=== PATIENT | female | born 1965 | race American Indian/Alaskan Native ===

== ENCOUNTER 2017-07-16 12:17 | Emergency (ER) | payer MEDICARE | END 2017-07-16 12:19 | disposition left against medical advice (07) | LOC: ED 12:17 | DX: R51 Headache (principal); Z53.21 Procedure and treatment not carried out due to patient leaving prior to being seen by health care provider ==

== ENCOUNTER 2021-03-16 10:27 | Emergency (ER) | payer MEDICARE ==
[2021-03-16 10:47] VITALS: BP 142/82
[2021-03-16] MEDS ORDERED: KETOROLAC 60 MG/2 ML INJ IM ONE (11:03)
--- NOTE | 2021-03-16 11:04 | Emergency Department Report ---
ED General Adult HPI - General Chief complaint: Extremity Injury, Lower Stated complaint: HIP PAIN Time Seen by Provider: 03/16/21 10:56 Source: patient Mode of arrival: Ambulatory Limitations: No Limitations - History of Present Illness Initial comments: 56-year-old -[place] female patient presents with complaints of left lower back pain radiating down her left buttock and thigh x4 days. She reports a history of sciatica and states this feels like a previous sciatic letter. Patient states her pain began when she attempted to climb the ladder to step out of the swimming pool 4 days ago. She denies any loss of bladder/bowel control, numbness/tingling/weakness in her limbs, or difficulty with ambulation. Patient's past medical history includes diabetes, morbid obesity, hypertension, and arthritis. She rates her current pain is 8/10 in severity. Patient states that ibuprofen 800 mg does help some. - Related Data Previous Rx's Medication Instructions Recorded Last Taken Type HYDROcodone/APAP 10-325 [[place] 1 each PO Q6HR PRN #20 tablet 06/17/15 Unknown Rx 10/325] methOCARBAMOL [Robaxin TAB] 750 mg PO Q8H PRN #21 tablet 06/17/15 Unknown Rx Albuterol Sulfate [Ventolin HFA] 2 puff IH Q4H PRN #1 hfa.aer.ad 10/16/15 Unknown Rx Amoxicillin/K Clav Tab [Augmentin 1 tab PO Q12HR #20 tab 10/16/15 Unknown Rx 875 mg] predniSONE [Deltasone] 50 mg PO QDAY #5 tab 10/16/15 Unknown Rx Cyclobenzaprine HCl [Flexeril 5 MG 5 mg PO TID #15 tab 06/24/16 Unknown Rx TAB] Ibuprofen [Motrin 800 MG tab] 800 mg PO Q8HR PRN #30 tablet 11/12/16 Unknown Rx Naproxen 500 mg PO BID PRN #20 tablet 03/16/21 Unknown Rx methocarbamoL [Methocarbamol] 750 - 1,500 mg PO TID PRN #30 03/16/21 Unknown Rx tablet Allergies Allergy/AdvReac Type Severity Reaction Status Date / Time No Known Allergies Allergy Verified 03/16/21 10:42 ED Review of Systems ROS: Stated complaint: HIP PAIN Other details as noted in HPI Constitutional: denies: malaise Gastrointestinal: denies: abdominal pain Genitourinary: denies: frequency, hematuria Musculoskeletal: back pain. denies: joint swelling, arthralgia Skin: denies: change in color Neurological: denies: numbness, paresthesias ED Past Medical Hx - Past Medical History Hx Hypertension: Yes Hx Diabetes: Yes Hx Arthritis: Yes Additional medical history: CAD. Morbid obesity - Surgical History Hx Cholecystectomy: Yes Additional Surgical History: HERNIA REPAIR,CS X 2 - Social History Smoking Status: Never Smoker Substance Use Type: None - Medications Home Medications: Home Medications Medication Instructions Recorded Confirmed Last Taken Type HYDROcodone/APAP 10-325 [[place] 1 each PO Q6HR PRN #20 tablet 06/17/15 Unknown Rx 10/325] methOCARBAMOL [Robaxin TAB] 750 mg PO Q8H PRN #21 tablet 06/17/15 Unknown Rx Albuterol Sulfate [Ventolin HFA] 2 puff IH Q4H PRN #1 hfa.aer.ad 10/16/15 Unknown Rx Amoxicillin/K Clav Tab [Augmentin 1 tab PO Q12HR #20 tab 10/16/15 Unknown Rx 875 mg] predniSONE [Deltasone] 50 mg PO QDAY #5 tab 10/16/15 Unknown Rx Cyclobenzaprine HCl [Flexeril 5 MG 5 mg PO TID #15 tab 06/24/16 Unknown Rx TAB] Ibuprofen [Motrin 800 MG tab] 800 mg PO Q8HR PRN #30 tablet 11/12/16 Unknown Rx Naproxen 500 mg PO BID PRN #20 tablet 03/16/21 Unknown Rx methocarbamoL [Methocarbamol] 750 - 1,500 mg PO TID PRN #30 03/16/21 Unknown Rx tablet ED Physical Exam - General Limitations: No Limitations General appearance: alert, in no apparent distress, obese - Head Head exam: Present: atraumatic, normocephalic - Eye Eye exam: Present: normal appearance - Neck Neck exam: Present: full ROM - Respiratory Respiratory exam: Absent: respiratory distress - Cardiovascular Cardiovascular Exam: Present: regular rate - Extremities Exam Extremities exam: Present: full ROM - Back Exam Back exam: Absent: vertebral tenderness - Expanded Back Exam Expanded Back exam: Absent: saddle anesthesia Back exam: Sciatic Notch Tenderness: Left, Positive Straight Leg Raise: Left - Neurological Exam Neurological exam: Present: alert, oriented X3 - Psychiatric Psychiatric exam: Present: normal affect, normal mood - Skin Skin exam: Present: warm, dry, intact, normal color. Absent: rash ED Course Vital Signs 03/16/21 03/16/21 10:45 12:22 Temperature 98.1 F Pulse Rate 88 84 Respiratory 20 16 Rate Blood Pressure 142/82 O2 Sat by Pulse 98 98 Oximetry ED Medical Decision Making - Medical Decision Making 56-year-old -[place] female patient presents with complaints of left lower back pain radiating down her left buttock and thigh x4 days. She reports a history of sciatica and states this feels like a previous sciatic letter. Patient states her pain began when she attempted to climb the ladder to step out of the swimming pool 4 days ago. She denies any loss of bladder/bowel control, numbness/tingling/weakness in her limbs, or difficulty with ambulation. Patient's past medical history includes diabetes, morbid obesity, hypertension, and arthritis. She rates her current pain is 8/10 in severity. Patient states that ibuprofen 800 mg does help some. Physical and history consistent with sciatica. Patient given Toradol and Robaxin and states her pain has significantly improved. She is ambulatory with cane. Vitals are within normal limits and she is well-appearing and stable for discharge home. Strict return precautions were discussed in detail with patient who verbalized understanding. Critical care attestation.: If time is entered above; I have spent that time in minutes in the direct care of this critically ill patient, excluding procedure time. ED Disposition Clinical Impression: Sciatica, left side Disposition: - TO HOME OR SELFCARE Is pt being admited?: No Condition: Stable Instructions: Sciatica Prescriptions: methocarbamoL [Methocarbamol] 750 - 1,500 mg PO TID PRN #30 tablet PRN Reason: muscle spasm/tightness Naproxen 500 mg PO BID PRN #20 tablet PRN Reason: pain Referrals: PRIMARY CARE, [Primary Care Provider] - 3-5 Days Time of Disposition: 12:05
== END 2021-03-16 12:23 | disposition home or self-care (01) ==
LOC: ED 10:27
DX: M54.42 Lumbago with sciatica, left side (principal); I10 Essential (primary) hypertension; E11.9 Type 2 diabetes mellitus without complications; M19.91 Primary osteoarthritis, unspecified site; Z90.49 Acquired absence of other specified parts of digestive tract; Z98.890 Other specified postprocedural states; Z79.1 Long term (current) use of non-steroidal anti-inflammatories (NSAID); Z79.2 Long term (current) use of antibiotics; Z79.899 Other long term (current) drug therapy
CPT/HCPCS: 96372; 99282; J1885

== ENCOUNTER 2021-04-07 13:38 | Observation (INO) | payer MEDICARE ==
--- NOTE | 2021-04-07 15:52 | Emergency Department Report ---
HPI - General Chief Complaint: Dyspnea/Respdistress PUI?: Yes Time Seen by Provider: 04/07/21 15:25 - HPI HPI: 56-year-old female with history of hypertension, DM2, and abdominal hernia status post repair and recently diagnosed COVID-19 is brought in by EMS due to worsening shortness of breath this morning. Patient states that for the past 2 weeks she has been experiencing abdominal pain with occasional nausea and vomiting as well as shortness of breath and dry cough. She was seen at [facility] on Friday and tested positive for Covid. She has continued to have waxing and waning symptoms but states that this morning all of a sudden she began to feel profoundly short of breath and went into respiratory distress. She also reports feeling extremely nauseated at the time but did not vomit. Per EMS she was noted to be hypoxic with oxygen saturation in the high 80s. She was placed on nonrebreather with improvement of her oxygen. She was given an albuterol breathing treatment. Patient states that her profound shortness of breath went away sometime after arriving at the emergency department. The patient now states that she has been having normal bowel movements. She denies any fever, chest pain, headache, vision change, back pain, focal weakness, sensory changes, dysuria, or any other complaints. At this time she is asymptomatic. ED Past Medical Hx - Past Medical History Hx Hypertension: Yes Hx Diabetes: Yes Hx Arthritis: Yes Additional medical history: CAD. Morbid obesity - Surgical History Hx Cholecystectomy: Yes Additional Surgical History: HERNIA REPAIR,CS X 2 - Social History Smoking Status: Never Smoker Substance Use Type: None - Medications Home Medications: Home Medications Medication Instructions Recorded Confirmed Last Taken Type HYDROcodone/APAP 10-325 [[place] 1 each PO Q6HR PRN #20 tablet 06/17/15 Unknown Rx 10/325] methOCARBAMOL [Robaxin TAB] 750 mg PO Q8H PRN #21 tablet 06/17/15 Unknown Rx Albuterol Sulfate [Ventolin HFA] 2 puff IH Q4H PRN #1 hfa.aer.ad 10/16/15 Unknown Rx Amoxicillin/K Clav Tab [Augmentin 1 tab PO Q12HR #20 tab 10/16/15 Unknown Rx 875 mg] predniSONE [Deltasone] 50 mg PO QDAY #5 tab 10/16/15 Unknown Rx Cyclobenzaprine HCl [Flexeril 5 MG 5 mg PO TID #15 tab 06/24/16 Unknown Rx TAB] Ibuprofen [Motrin 800 MG tab] 800 mg PO Q8HR PRN #30 tablet 11/12/16 Unknown Rx Naproxen 500 mg PO BID PRN #20 tablet 03/16/21 Unknown Rx methocarbamoL [Methocarbamol] 750 - 1,500 mg PO TID PRN #30 03/16/21 Unknown Rx tablet ED Review of Systems ROS: Stated complaint: SOB Other details as noted in HPI Constitutional: denies: chills, fever Eyes: denies: eye pain, vision change ENT: denies: throat pain, congestion Respiratory: cough, shortness of breath Cardiovascular: denies: chest pain, palpitations, syncope Gastrointestinal: nausea. denies: abdominal pain, vomiting, diarrhea, constipation Genitourinary: denies: dysuria, frequency Musculoskeletal: denies: back pain, joint swelling Skin: denies: rash, lesions Neurological: denies: headache, weakness, numbness, paresthesias, confusion, vertigo Physical Exam - Physical Exam Vital Signs: Vital Signs 04/07/21 15:24 Temperature 98 F Pulse Rate 89 Respiratory 18 Rate Blood Pressure 126/78 O2 Sat by Pulse 93 Oximetry Physical Exam: GENERAL: Well developed morbidly obese female. No acute distress HEAD: Normocephalic. No obvious signs of trauma. ENT: Moist mucous membranes. EYES: Extraocular movements are intact. Pupils are equal round and reactive to light bilaterally NECK: Supple. Full ROM is intact. Trachea is midline. LUNGS: Tachypneic but in no respiratory distress. Equal chest rise bilaterally. Bibasilar rales which are more significant on the left. CARDIOVASCULAR: Regular rate and rhythm. No murmurs or rubs. VASCULAR: Cap refill < 2 seconds ABDOMEN: Abdomen is soft and nontender without any significant guarding or rebound. SKIN: Skin is warm and dry NEURO: Patient is awake, alert, and oriented. winder operator II-XII grossly intact. No focal deficits. Normal motor and sensory exam throughout. Normal speech. MUSCULOSKELETAL: No obvious deformities. No significant tenderness. Normal ROM throughout. BACK/SPINE: No midline tenderness or step-offs of the C/T/L spine. No costovertebral angle tenderness. ED Course Vital Signs 04/07/21 15:24 Temperature 98 F Pulse Rate 89 Respiratory 18 Rate Blood Pressure 126/78 O2 Sat by Pulse 93 Oximetry ED Medical Decision Making - Lab Data Result diagrams: 04/07/21 16:23 04/07/21 16:23 Lab Results 04/07/21 04/07/21 04/07/21 Range/Units 16:23 16:23 16:23 WBC 6.4 (4.5-11.0) K/mm3 RBC 4.43 (3.65-5.03) M/mm3 Hgb 11.5 (10.1-14.3) gm/dl Hct 35.6 (30.3-42.9) % MCV 80 (79-97) fl MCH 26 L (28-32) pg MCHC 32 (30-34) % RDW 16.4 H (13.2-15.2) % Plt Count 315 (140-440) K/mm3 Lymph % (Auto) 19.7 (13.4-35.0) % Wilson % (Auto) 6.8 (0.0-7.3) % Eos % (Auto) 0.6 (0.0-4.3) % Baso % (Auto) 1.3 (0.0-1.8) % Lymph # (Auto) 1.3 (1.2-5.4) K/mm3 Wilson # (Auto) 0.4 (0.0-0.8) K/mm3 Eos # (Auto) 0.0 (0.0-0.4) K/mm3 Baso # (Auto) 0.1 (0.0-0.1) K/mm3 Seg Neutrophils % 71.6 H (40.0-70.0) % Seg Neutrophils # 4.6 (1.8-7.7) K/mm3 PT (12.2-14.9) Sec. INR (0.87-1.13) APTT (24.2-36.6) Sec. D-Dimer (0-234) ng/mlDDU Sodium 138 (137-145) mmol/L Potassium 4.0 (3.6-5.0) mmol/L Chloride 100.3 (98-107) mmol/L Carbon Dioxide 27 (22-30) mmol/L Anion Gap 15 mmol/L BUN 8 (7-17) mg/dL Creatinine 0.9 (0.6-1.2) mg/dL Estimated GFR > 60 ml/min BUN/Creatinine Ratio 9 % Glucose 114 H (65-100) mg/dL Lactic Acid 0.90 (0.7-2.0) mmol/L Calcium 9.0 (8.4-10.2) mg/dL Magnesium (1.7-2.3) mg/dL Ferritin (10.0-200.0) ng/mL Total Bilirubin 0.50 (0.1-1.2) mg/dL AST 35 (5-40) units/L ALT 25 (7-56) units/L Alkaline Phosphatase 67 (35-129) units/L Lactate Dehydrogenase (91-180) units/L Troponin T < 0.010 (0.00-0.029) ng/mL C-Reactive Protein (0.00-1.30) mg/dL Total Protein 7.1 (6.3-8.2) g/dL Albumin 3.7 L (3.9-5) g/dL Albumin/Globulin Ratio 1.1 % Lipase (13-60) units/L 04/07/21 04/07/21 04/07/21 Range/Units 16:23 16:23 16:23 WBC (4.5-11.0) K/mm3 RBC (3.65-5.03) M/mm3 Hgb (10.1-14.3) gm/dl Hct (30.3-42.9) % MCV (79-97) fl MCH (28-32) pg MCHC (30-34) % RDW (13.2-15.2) % Plt Count (140-440) K/mm3 Lymph % (Auto) (13.4-35.0) % Wilson % (Auto) (0.0-7.3) % Eos % (Auto) (0.0-4.3) % Baso % (Auto) (0.0-1.8) % Lymph # (Auto) (1.2-5.4) K/mm3 Wilson # (Auto) (0.0-0.8) K/mm3 Eos # (Auto) (0.0-0.4) K/mm3 Baso # (Auto) (0.0-0.1) K/mm3 Seg Neutrophils % (40.0-70.0) % Seg Neutrophils # (1.8-7.7) K/mm3 PT 13.6 (12.2-14.9) Sec. INR 0.99 (0.87-1.13) APTT 25.3 (24.2-36.6) Sec. D-Dimer 734.18 H (0-234) ng/mlDDU Sodium (137-145) mmol/L Potassium (3.6-5.0) mmol/L Chloride (98-107) mmol/L Carbon Dioxide (22-30) mmol/L Anion Gap mmol/L BUN (7-17) mg/dL Creatinine (0.6-1.2) mg/dL Estimated GFR ml/min BUN/Creatinine Ratio % Glucose 115 H (65-100) mg/dL Lactic Acid (0.7-2.0) mmol/L Calcium (8.4-10.2) mg/dL Magnesium 2.20 (1.7-2.3) mg/dL Ferritin 386.8 H (10.0-200.0) ng/mL Total Bilirubin (0.1-1.2) mg/dL AST (5-40) units/L ALT (7-56) units/L Alkaline Phosphatase (35-129) units/L Lactate Dehydrogenase 308 H (91-180) units/L Troponin T (0.00-0.029) ng/mL C-Reactive Protein 7.00 H (0.00-1.30) mg/dL Total Protein (6.3-8.2) g/dL Albumin (3.9-5) g/dL Albumin/Globulin Ratio % Lipase (13-60) units/L 04/07/21 Range/Units 16:23 WBC (4.5-11.0) K/mm3 RBC (3.65-5.03) M/mm3 Hgb (10.1-14.3) gm/dl Hct (30.3-42.9) % MCV (79-97) fl MCH (28-32) pg MCHC (30-34) % RDW (13.2-15.2) % Plt Count (140-440) K/mm3 Lymph % (Auto) (13.4-35.0) % Wilson % (Auto) (0.0-7.3) % Eos % (Auto) (0.0-4.3) % Baso % (Auto) (0.0-1.8) % Lymph # (Auto) (1.2-5.4) K/mm3 Wilson # (Auto) (0.0-0.8) K/mm3 Eos # (Auto) (0.0-0.4) K/mm3 Baso # (Auto) (0.0-0.1) K/mm3 Seg Neutrophils % (40.0-70.0) % Seg Neutrophils # (1.8-7.7) K/mm3 PT (12.2-14.9) Sec. INR (0.87-1.13) APTT (24.2-36.6) Sec. D-Dimer (0-234) ng/mlDDU Sodium (137-145) mmol/L Potassium (3.6-5.0) mmol/L Chloride (98-107) mmol/L Carbon Dioxide (22-30) mmol/L Anion Gap mmol/L BUN (7-17) mg/dL Creatinine (0.6-1.2) mg/dL Estimated GFR ml/min BUN/Creatinine Ratio % Glucose (65-100) mg/dL Lactic Acid (0.7-2.0) mmol/L Calcium (8.4-10.2) mg/dL Magnesium (1.7-2.3) mg/dL Ferritin (10.0-200.0) ng/mL Total Bilirubin (0.1-1.2) mg/dL AST (5-40) units/L ALT (7-56) units/L Alkaline Phosphatase (35-129) units/L Lactate Dehydrogenase (91-180) units/L Troponin T (0.00-0.029) ng/mL C-Reactive Protein (0.00-1.30) mg/dL Total Protein (6.3-8.2) g/dL Albumin (3.9-5) g/dL Albumin/Globulin Ratio % Lipase 14 (13-60) units/L - EKG Data -: EKG Interpreted by Me - EKG Data 04/07/21 16:31 Normal sinus rhythm. Normal axis. Normal intervals. No ectopy. No significa nt ST segment or T wave abnormalities. - Radiology Data CHEST 1 VIEW INDICATION: SOB. COMPARISON: None. FINDINGS: Support devices: None. Heart: Normal. Lungs/Pleura: The exam is underpenetrated, this may account for prominent interstitial markings. There may be small effusions. IMPRESSION: 1. Limited study due to underpenetration. There is suggestion of mild interstitial lung disease and small effusions which could be seen in the setting of lower airways disease or pulmonary edema. Signer Name: Blayne Elaine MD Signed: 04/07/2021 5:22 PM Workstation Name: [id number] - Medical Decision Making 56-year-old female with hypertension diabetes mellitus, and diagnosed with Covid at [facility] on Friday presents via EMS with acute shortness of breath and respiratory distress as well as nausea after 2 weeks of ongoing symptoms. Patient was given an albuterol treatment prior to arrival. On my assessment, she is nodding any acute distress. She is tachypneic. Her heart rate and blood pressure are grossly normal. However, her oxygen saturation on room air hovers around 90 to 93%. Improved to the high 90s on 2 L via nasal cannula. Lung auscultation reveals left greater than right basilar rales. There is no significant abdominal tenderness. Given that the patient was recently diagnosed with COVID-19, I suspect that her symptoms are reflective of progressed disease. I will send a full set of labs including the COVID-19 order set obtain a chest x-ray and CTA of the chest. We will continue to monitor her closely. Chest x-ray appears to show bibasilar interstitial infiltrates which could represent pneumonia or volume overload. Labs have resulted and reveal no significant leukocytosis or anemia. Kidney function is normal and there are no significant electrolyte abnormalities. The COVID-19 markers are elevated. Given the possibility of pneumonia with recent healthcare exposure, I have ordered IV cefepime and azithromycin. On repeat assessment at 545 PM, the patient remains symptomatically improved and with normal oxygen saturation on minimal supplemental oxygen. At 6:10 PM, the patient remains symptomatically improved and with stable vital signs. I spoke to her regarding the diagnostic findings and my clinical impression and plan to admit her to the hospital for further management and possible work-up and she expressed understanding and agreement with the plan of care. 6:15 PM I spoke with Dr. Barton, the on-call hospitalist regarding the case. He accepts the patient for admission and will assume care. He understands that urinalysis as well as several other labs and CTA of the chest are still pending. Critical Care Time: Yes Critical care time in (mins) excluding proc time.: 35 Critical care attestation.: If time is entered above; I have spent that time in minutes in the direct care of this critically ill patient, excluding procedure time. Critical care time was spent in the evaluation, assessment, work-up, and management of COVID-19 disease with hypoxia requiring supplemental oxygen, labs, interpretation of EKG and chest x-ray, and frequent reevaluation and reassessment. ED Disposition Clinical Impression: Pneumonia due to COVID-19 virus, Hypoxia, Elevated d-dimer Disposition: DC OP ADMIT IP TO THIS HOSP Is pt being admited?: Yes Condition: Fair Instructions: Bacterial Pneumonia (ED) Referrals: PRIMARY CARE, [Primary Care Provider] - 3-5 Days
[2021-04-07 17:31] LABS: Alanine Aminotransferase 25 units/L (7-56); Albumin 3.7 g/dL (3.9-5); BUN/Creatinine Ratio 9; Blood Urea Nitrogen 8 mg/dL (7-17); Hemolysis Index 2
[2021-04-07 17:33] LABS: INR 0.99 (0.87-1.13)
[2021-04-07 17:34] LABS: Partial Thromboplastin Time 25.3 Sec. (24.2-36.6)
[2021-04-07 17:43] LABS: Basophils # (Auto) 0.1 K/mm3 (0.0-0.1); Basophils % (Auto) 1.3 % (0.0-1.8); Eosinophils % (Auto) 0.6 % (0.0-4.3); Hematocrit 35.6 % (30.3-42.9); Hemoglobin 11.5 gm/dl (10.1-14.3); Lymphocytes # (Auto) 1.3 K/mm3 (1.2-5.4); Lymphocytes % (Auto) 19.7 % (13.4-35.0); Mean Corpuscular HGB Conc 32 % (30-34); Mean Corpuscular Volume 80 fl (79-97); Monocytes # (Auto) 0.4 K/mm3 (0.0-0.8); Monocytes % (Auto) 6.8 % (0.0-7.3); Red Blood Count 4.43 M/mm3 (3.65-5.03); Red Cell Distribution Width 16.4 % (13.2-15.2)
[2021-04-07 17:46] LABS: Platelet Count 315 K/mm3 (140-440)
[2021-04-07] MEDS ORDERED: CEFEPIME/NS 2 GM/100 ML 2 GM/100 ML BAG IV ONE (18:00)
[2021-04-07] MEDS ORDERED: AZITHROMYCIN/NS 500 MG/250 ML 500 MG/250 ML BAG IV ONE (18:01)
--- NOTE | 2021-04-07 18:26 | XRay Report ---
CHEST 1 VIEW INDICATION: SOB. COMPARISON: None. FINDINGS: Support devices: None. Heart: Normal. Lungs/Pleura: The exam is underpenetrated, this may account for prominent interstitial markings. Ther e may be small effusions. IMPRESSION: 1. Limited study due to underpenetration. There is suggestion of mild interstitial lung disease and s mall effusions which could be seen in the setting of lower airways disease or pulmonary edema. Signer Name: Blayne Elaine MD Signed: 04/07/2021 6:22 PM Workstation Name: [id number]
[2021-04-07] MEDS ORDERED: HYDROcodone/ACETAMINOPHEN 10-325MG TAB PO PRN (23:44)
[2021-04-07] MEDS ORDERED: ALBUTEROL 8.5 GM MDI INHALATION IH PRN (23:44)
[2021-04-07] MEDS ORDERED: dexAMETHasone 4 MG/ML VIAL IV SCH (23:45)
[2021-04-07] MEDS ORDERED: ONDANSETRON 4 MG/2 ML INJ IV PRN (23:46)
[2021-04-07] MEDS ORDERED: METOCLOPRAMIDE 10 MG/2 ML INJ IV PRN (23:46)
[2021-04-07] MEDS ORDERED: oxyCODONE /ACETAMINOPHEN 5-325MG TAB PO PRN (23:46)
[2021-04-07] MEDS ORDERED: ACETAMINOPHEN 325 MG TAB PO PRN (23:46)
[2021-04-07] MEDS ORDERED: HYDROmorphone 1 MG/1 ML INJ IV PRN (23:46)
[2021-04-07] MEDS ORDERED: ALBUTEROL 2.5 MG/3 ML NEBU IH PRN (23:50)
--- NOTE | 2021-04-08 00:08 | History and Physical Report ---
History of Present Illness Date of examination: 04/07/21 Date of admission: 04/07/21 22:05 History of present illness: 56-year-old female with history of hypertension, DM2, and abdominal hernia status post repair and recently diagnosed COVID-19 is brought in by EMS due to worsening shortness of breath this morning. Patient states that for the past 2 weeks she has been experiencing abdominal pain with occasional nausea and vomiting as well as shortness of breath and dry cough. She was seen at [facility] on Friday and tested positive for Covid. She has continued to have waxing and waning symptoms but states that this morning all of a sudden she began to feel profoundly short of breath and went into respiratory distress. She also reports feeling extremely nauseated at the time but did not vomit. Per EMS she was noted to be hypoxic with oxygen saturation in the high 80s. She was placed on nonrebreather with improvement of her oxygen. She was given an albuterol breathing treatment. Patient states that her profound shortness of breath went away sometime after arriving at the emergency department. The patient now states that she has been having normal bowel movements. She denies any fever, chest pain, headache, vision change, back pain, focal weakness, sensory changes, dysuria, or any other complaints. At this time she is asymptomatic. - Past Medical History Hx Hypertension: Yes Hx Diabetes: Yes --Arthritis: Yes Additional medical history: CAD. Morbid obesity - Surgical History Hx Cholecystectomy: Yes Additional Surgical History: HERNIA REPAIR,CS X 2 - Social History Smoking Status: Never Smoker Substance Use Type: None - Medications Home Medications: Home Medications Medication Instructions Recorded Confirmed Last Taken Type HYDROcodone/APAP 10-325 [[place] 1 each PO Q6HR PRN #20 tablet 06/17/15 Unknown Rx 10/325] methOCARBAMOL [Robaxin TAB] 750 mg PO Q8H PRN #21 tablet 06/17/15 Unknown Rx Albuterol Sulfate [Ventolin HFA] 2 puff IH Q4H PRN #1 hfa.aer.ad 10/16/15 Unknown Rx Amoxicillin/K Clav Tab [Augmentin 1 tab PO Q12HR #20 tab 10/16/15 Unknown Rx 875 mg] predniSONE [Deltasone] 50 mg PO QDAY #5 tab 10/16/15 Unknown Rx Cyclobenzaprine HCl [Flexeril 5 MG 5 mg PO TID #15 tab 06/24/16 Unknown Rx TAB] Ibuprofen [Motrin 800 MG tab] 800 mg PO Q8HR PRN #30 tablet 11/12/16 Unknown Rx Naproxen 500 mg PO BID PRN #20 tablet 03/16/21 Unknown Rx methocarbamoL [Methocarbamol] 750 - 1,500 mg PO TID PRN #30 03/16/21 Unknown Rx tablet Review of Systems ROS: Stated complaint: SOB Other details as noted in HPI Constitutional: denies: chills, fever Eyes: denies: eye pain, vision change ENT: denies: throat pain, congestion Respiratory: cough, shortness of breath Cardiovascular: denies: chest pain, palpitations, syncope Gastrointestinal: nausea. denies: abdominal pain, vomiting, diarrhea, constipation Genitourinary: denies: dysuria, frequency Musculoskeletal: denies: back pain, joint swelling Skin: denies: rash, lesions Neurological: denies: headache, weakness, numbness, paresthesias, confusion, vertigo Medications and Allergies Allergies Allergy/AdvReac Type Severity Reaction Status Date / Time No Known Allergies Allergy Verified 04/07/21 15:26 Home Medications Medication Instructions Recorded Confirmed Last Taken Type HYDROcodone/APAP 10-325 [[place] 1 each PO Q6HR PRN #20 tablet 06/17/15 Unknown Rx 10/325] methOCARBAMOL [Robaxin TAB] 750 mg PO Q8H PRN #21 tablet 06/17/15 Unknown Rx Albuterol Sulfate [Ventolin HFA] 2 puff IH Q4H PRN #1 hfa.aer.ad 10/16/15 Unknown Rx Amoxicillin/K Clav Tab [Augmentin 1 tab PO Q12HR #20 tab 10/16/15 Unknown Rx 875 mg] predniSONE [Deltasone] 50 mg PO QDAY #5 tab 10/16/15 Unknown Rx Cyclobenzaprine HCl [Flexeril 5 MG 5 mg PO TID #15 tab 06/24/16 Unknown Rx TAB] Ibuprofen [Motrin 800 MG tab] 800 mg PO Q8HR PRN #30 tablet 11/12/16 Unknown Rx Naproxen 500 mg PO BID PRN #20 tablet 03/16/21 Unknown Rx methocarbamoL [Methocarbamol] 750 - 1,500 mg PO TID PRN #30 03/16/21 Unknown Rx tablet Exam - Constitutional Vitals: Temp Pulse Resp BP Pulse Ox 98 F 88 21 102/59 97 04/07/21 15:24 04/07/21 20:16 04/07/21 20:16 04/07/21 20:16 04/07/21 20:16 HEART Score - HEART Score Troponin: Troponin T < 0.010 ng/mL (0.00-0.029) 04/07/21 16:23 Results - Labs CBC & Chem 7: 04/07/21 16:23 04/07/21 16:23 Labs: Laboratory Last Values WBC 6.4 K/mm3 (4.5-11.0) 04/07/21 16:23 RBC 4.43 M/mm3 (3.65-5.03) 04/07/21 16:23 Hgb 11.5 gm/dl (10.1-14.3) 04/07/21 16:23 Hct 35.6 % (30.3-42.9) 04/07/21 16:23 MCV 80 fl (79-97) 04/07/21 16:23 MCH 26 pg (28-32) L 04/07/21 16:23 MCHC 32 % (30-34) 04/07/21 16:23 RDW 16.4 % (13.2-15.2) H 04/07/21 16:23 Plt Count 315 K/mm3 (140-440) 04/07/21 16:23 Lymph % (Auto) 19.7 % (13.4-35.0) 04/07/21 16:23 [place] % (Auto) 6.8 % (0.0-7.3) 04/07/21 16:23 Eos % (Auto) 0.6 % (0.0-4.3) 04/07/21 16:23 Baso % (Auto) 1.3 % (0.0-1.8) 04/07/21 16:23 Lymph # (Auto) 1.3 K/mm3 (1.2-5.4) 04/07/21 16:23 [place] # (Auto) 0.4 K/mm3 (0.0-0.8) 04/07/21 16:23 Eos # (Auto) 0.0 K/mm3 (0.0-0.4) 04/07/21 16:23 Baso # (Auto) 0.1 K/mm3 (0.0-0.1) 04/07/21 16:23 Seg Neutrophils % 71.6 % (40.0-70.0) H 04/07/21 16:23 Seg Neutrophils # 4.6 K/mm3 (1.8-7.7) 04/07/21 16:23 PT 13.6 Sec. (12.2-14.9) 04/07/21 16:23 INR 0.99 (0.87-1.13) 04/07/21 16:23 APTT 25.3 Sec. (24.2-36.6) 04/07/21 16:23 D-Dimer 734.18 ng/mlDDU (0-234) H 04/07/21 16:23 Sodium 138 mmol/L (137-145) 04/07/21 16:23 Potassium 4.0 mmol/L (3.6-5.0) 04/07/21 16:23 Chloride 100.3 mmol/L (98-107) 04/07/21 16:23 Carbon Dioxide 27 mmol/L (22-30) 04/07/21 16:23 Anion Gap 15 mmol/L 04/07/21 16:23 BUN 8 mg/dL (7-17) 04/07/21 16:23 Creatinine 0.9 mg/dL (0.6-1.2) 04/07/21 16:23 Estimated GFR > 60 ml/min 04/07/21 16:23 BUN/Creatinine Ratio 9 % 04/07/21 16:23 Glucose 114 mg/dL (65-100) H 04/07/21 16:23 Glucose 115 mg/dL (65-100) H 04/07/21 16:23 Lactic Acid 0.90 mmol/L (0.7-2.0) 04/07/21 16:23 Calcium 9.0 mg/dL (8.4-10.2) 04/07/21 16:23 Magnesium 2.20 mg/dL (1.7-2.3) 04/07/21 16:23 Ferritin 386.8 ng/mL (10.0-200.0) H 04/07/21 16:23 Total Bilirubin 0.50 mg/dL (0.1-1.2) 04/07/21 16:23 AST 35 units/L (5-40) 04/07/21 16:23 ALT 25 units/L (7-56) 04/07/21 16:23 Alkaline Phosphatase 67 units/L (35-129) 04/07/21 16:23 Lactate Dehydrogenase 308 units/L (91-180) H 04/07/21 16:23 Troponin T < 0.010 ng/mL (0.00-0.029) 04/07/21 16:23 C-Reactive Protein 7.00 mg/dL (0.00-1.30) H 04/07/21 16:23 NT-Pro-B Natriuret Pep 5.50 pg/mL (0-900) 04/07/21 16:55 Total Protein 7.1 g/dL (6.3-8.2) 04/07/21 16:23 Albumin 3.7 g/dL (3.9-5) L 04/07/21 16:23 Albumin/Globulin Ratio 1.1 % 04/07/21 16:23 Lipase 14 units/L (13-60) 04/07/21 16:55 Microbiology: Microbiology 04/07/21 16:23 Peripheral/Venous Blood Culture - Preliminary Culture in Progress 04/07/21 16:23 Peripheral/Venous Blood Culture - Preliminary Culture in Progress
--- NOTE | 2021-04-08 06:36 | History and Physical Report ---
History of Present Illness Date of examination: 04/07/21 Date of admission: 04/07/21 22:05 Chief complaint: Shortness of breath for 2 weeks History of present illness: 56-year-old -[place] female with morbid obesity, hypertension, diabetes and arthritis was recently diagnosed with COVID-19 but not admitted. Patient has been short of breath for the past 2 weeks and experiencing abdominal pain and occasional nausea and vomiting and dry cough. Patient was seen at [facility] on Friday and tested positive for Covid. Patient was discharged from the emergency room. Today patient was noted to be hypoxic with oxygen saturation in the high 80s. She was placed on oxygen and brought to the emergency room. Patient is short of breath in the emergency room intermittently. At times patient is asymptomatic. No chest pain. No fever. No muscle aches. No exposure to coronavirus. Patient is unvaccinated. - Past Medical History --Hypertension: Yes --Diabetes: Yes --Arthritis: Yes --Additional medical history: CAD. Morbid obesity - Surgical History --Cholecystectomy: Yes --Additional Surgical History: HERNIA REPAIR,CS X 2 - Social History Smoking Status: Never Smoker Substance Use Type: None --Family history Hypertension - Medications Home Medications: Home Medications Medication Instructions Recorded Confirmed Last Taken Type HYDROcodone/APAP 10-325 [[place] 1 each PO Q6HR PRN #20 tablet 06/17/15 Unknown Rx 10/325] methOCARBAMOL [Robaxin TAB] 750 mg PO Q8H PRN #21 tablet 06/17/15 Unknown Rx Albuterol Sulfate [Ventolin HFA] 2 puff IH Q4H PRN #1 hfa.aer.ad 10/16/15 Unknown Rx Amoxicillin/K Clav Tab [Augmentin 1 tab PO Q12HR #20 tab 10/16/15 Unknown Rx 875 mg] predniSONE [Deltasone] 50 mg PO QDAY #5 tab 10/16/15 Unknown Rx Cyclobenzaprine HCl [Flexeril 5 MG 5 mg PO TID #15 tab 06/24/16 Unknown Rx TAB] Ibuprofen [Motrin 800 MG tab] 800 mg PO Q8HR PRN #30 tablet 11/12/16 Unknown Rx Naproxen 500 mg PO BID PRN #20 tablet 03/16/21 Unknown Rx methocarbamoL [Methocarbamol] 750 - 1,500 mg PO TID PRN #30 03/16/21 Unknown Rx tablet Review of Systems ROS: Stated complaint: SOB Other details as noted in HPI Constitutional: denies: chills, fever Eyes: denies: eye pain, vision change ENT: denies: throat pain, congestion Respiratory: cough, shortness of breath Cardiovascular: denies: chest pain, palpitations, syncope Gastrointestinal: nausea. denies: abdominal pain, vomiting, diarrhea, constipation Genitourinary: denies: dysuria, frequency Musculoskeletal: denies: back pain, joint swelling Skin: denies: rash, lesions Neurological: denies: headache, weakness, numbness, paresthesias, confusion, vertigo Medications and Allergies Allergies Allergy/AdvReac Type Severity Reaction Status Date / Time No Known Allergies Allergy Verified 04/07/21 15:26 Home Medications Medication Instructions Recorded Confirmed Last Taken Type HYDROcodone/APAP 10-325 [[place] 1 each PO Q6HR PRN #20 tablet 06/17/15 Unknown Rx 10/325] methOCARBAMOL [Robaxin TAB] 750 mg PO Q8H PRN #21 tablet 06/17/15 Unknown Rx Albuterol Sulfate [Ventolin HFA] 2 puff IH Q4H PRN #1 hfa.aer.ad 10/16/15 Unknown Rx Amoxicillin/K Clav Tab [Augmentin 1 tab PO Q12HR #20 tab 10/16/15 Unknown Rx 875 mg] predniSONE [Deltasone] 50 mg PO QDAY #5 tab 10/16/15 Unknown Rx Cyclobenzaprine HCl [Flexeril 5 MG 5 mg PO TID #15 tab 06/24/16 Unknown Rx TAB] Ibuprofen [Motrin 800 MG tab] 800 mg PO Q8HR PRN #30 tablet 11/12/16 Unknown Rx Naproxen 500 mg PO BID PRN #20 tablet 03/16/21 Unknown Rx methocarbamoL [Methocarbamol] 750 - 1,500 mg PO TID PRN #30 03/16/21 Unknown Rx tablet Active Meds: Active Medications Acetaminophen (Acetaminophen 325 Mg Tab) 650 mg PO Q4H PRN PRN Reason: Pain MILD(1-3)/Fever >100.5/[place] Hydrocodone Bitart/Acetaminophen (Hydrocodone/Acetaminophen 10-325mg Tab) 1 each PO Q6HR PRN PRN Reason: Pain, Moderate (4-6) Albuterol (Albuterol 2.5 Mg/3 Ml Nebu) 2.5 mg IH Q4HRT PRN PRN Reason: Wheezing Cyclobenzaprine HCl (Cyclobenzaprine 10 Mg Tab) 5 mg PO TID JESSE Dexamethasone (Dexamethasone 4 Mg/Ml Vial) 8 mg IV Q24HR@2200 JESSE Enoxaparin Sodium (Enoxaparin 40 Mg/0.4 Ml Inj) 40 mg SUB-Q QDAY@2200 JESSE; Prot ocol Famotidine (Famotidine 20 Mg Tab) 20 mg PO BID JESSE Hydromorphone HCl (Hydromorphone 1 Mg/1 Ml Inj) 0.5 mg IV Q3H PRN PRN Reason: Pain , Severe (7-10) Azithromycin (Zithromax/Ns) 500 mg in 250 mls @ 250 mls/hr IV Q24H JESSE Ceftriaxone Sodium (Rocephin/Ns 2 Gm/100 Ml) 2 gm in 100 mls @ 200 mls/hr IV Q24HR JESSE; Protocol Metoclopramide HCl (Metoclopramide 10 Mg/2 Ml Inj) 10 mg IV Q6H PRN PRN Reason: Nausea And Vomiting Ondansetron HCl (Ondansetron 4 Mg/2 Ml Inj) 4 mg IV Q8H PRN PRN Reason: Nausea And Vomiting Oxycodone/Acetaminophen (Oxycodone /Acetaminophen 5-325mg Tab) 1 tab PO Q6H PRN PRN Reason: Pain, Moderate (4-6) Sodium Chloride (Sodium Chloride 0.9% 10 Ml Flush Syringe) 10 ml IV BID [facility] Sodium Chloride (Sodium Chloride 0.9% 10 Ml Flush Syringe) 10 ml IV PRN PRN PRN Reason: LINE FLUSH Exam - Constitutional Vitals: Temp Pulse Resp BP Pulse Ox 98 F 88 21 102/59 97 04/07/21 15:24 04/07/21 20:16 04/07/21 20:16 04/07/21 20:16 04/07/21 20:16 General appearance: Present: mild distress, well-nourished - EENT Eyes: Present: PERRL ENT: hearing intact, clear oral mucosa - Neck Neck: Present: supple, normal ROM - Respiratory Respiratory effort: normal Respiratory: bilateral: CTA - Cardiovascular Heart rate: 78 Rhythm: regular Heart Sounds: Present: S1 & S2. Absent: rub, click - Extremities Extremities: no ischemia, pulses symmetrical, No edema Peripheral Pulses: within normal limits - Abdominal General gastrointestinal: Present: soft, non-tender, non-distended, normal bowel sounds Female genitourinary: Present: normal - Integumentary Integumentary: Present: clear, warm, dry - Musculoskeletal Musculoskeletal: gait normal, strength equal bilaterally - Psychiatric Psychiatric: appropriate mood/affect, intact judgment & insight - Neurologic Neurologic: CNII-XII intact, moves all extremities - Allied Health Allied health notes reviewed: nursing, case management HEART Score - HEART Score Troponin: Troponin T < 0.010 ng/mL (0.00-0.029) 04/08/21 00:04 Results - Labs CBC & Chem 7: 04/07/21 16:23 04/07/21 16:23 Labs: Laboratory Last Values WBC 6.4 K/mm3 (4.5-11.0) 04/07/21 16:23 RBC 4.43 M/mm3 (3.65-5.03) 04/07/21 16:23 Hgb 11.5 gm/dl (10.1-14.3) 04/07/21 16:23 Hct 35.6 % (30.3-42.9) 04/07/21 16:23 MCV 80 fl (79-97) 04/07/21 16:23 MCH 26 pg (28-32) L 04/07/21 16:23 MCHC 32 % (30-34) 04/07/21 16:23 RDW 16.4 % (13.2-15.2) H 04/07/21 16:23 Plt Count 315 K/mm3 (140-440) 04/07/21 16:23 Lymph % (Auto) 19.7 % (13.4-35.0) 04/07/21 16:23 [place] % (Auto) 6.8 % (0.0-7.3) 04/07/21 16:23 Eos % (Auto) 0.6 % (0.0-4.3) 04/07/21 16:23 Baso % (Auto) 1.3 % (0.0-1.8) 04/07/21 16:23 Lymph # (Auto) 1.3 K/mm3 (1.2-5.4) 04/07/21 16:23 [place] # (Auto) 0.4 K/mm3 (0.0-0.8) 04/07/21 16:23 Eos # (Auto) 0.0 K/mm3 (0.0-0.4) 04/07/21 16:23 Baso # (Auto) 0.1 K/mm3 (0.0-0.1) 04/07/21 16:23 Seg Neutrophils % 71.6 % (40.0-70.0) H 04/07/21 16:23 Seg Neutrophils # 4.6 K/mm3 (1.8-7.7) 04/07/21 16:23 PT 13.6 Sec. (12.2-14.9) 04/07/21 16:23 INR 0.99 (0.87-1.13) 04/07/21 16:23 APTT 25.3 Sec. (24.2-36.6) 04/07/21 16:23 D-Dimer 734.18 ng/mlDDU (0-234) H 04/07/21 16:23 Sodium 138 mmol/L (137-145) 04/07/21 16:23 Potassium 4.0 mmol/L (3.6-5.0) 04/07/21 16:23 Chloride 100.3 mmol/L (98-107) 04/07/21 16:23 Carbon Dioxide 27 mmol/L (22-30) 04/07/21 16:23 Anion Gap 15 mmol/L 04/07/21 16:23 BUN 8 mg/dL (7-17) 04/07/21 16:23 Creatinine 0.9 mg/dL (0.6-1.2) 04/07/21 16:23 Estimated GFR > 60 ml/min 04/07/21 16:23 BUN/Creatinine Ratio 9 % 04/07/21 16:23 Glucose 114 mg/dL (65-100) H 04/07/21 16:23 Glucose 115 mg/dL (65-100) H 04/07/21 16:23 Hemoglobin A1c 5.5 % (4-6) 04/08/21 05:04 Lactic Acid 0.60 mmol/L (0.7-2.0) L 04/08/21 00:04 Calcium 9.0 mg/dL (8.4-10.2) 04/07/21 16:23 Magnesium 2.20 mg/dL (1.7-2.3) 04/07/21 16:23 Ferritin 386.8 ng/mL (10.0-200.0) H 04/07/21 16:23 Total Bilirubin 0.50 mg/dL (0.1-1.2) 04/07/21 16:23 AST 35 units/L (5-40) 04/07/21 16:23 ALT 25 units/L (7-56) 04/07/21 16:23 Alkaline Phosphatase 67 units/L (35-129) 04/07/21 16:23 Lactate Dehydrogenase 308 units/L (91-180) H 04/07/21 16:23 Troponin T < 0.010 ng/mL (0.00-0.029) 04/08/21 00:04 C-Reactive Protein 7.00 mg/dL (0.00-1.30) H 04/07/21 16:23 NT-Pro-B Natriuret Pep 5.50 pg/mL (0-900) 04/07/21 16:55 Total Protein 7.1 g/dL (6.3-8.2) 04/07/21 16:23 Albumin 3.7 g/dL (3.9-5) L 04/07/21 16:23 Albumin/Globulin Ratio 1.1 % 04/07/21 16:23 Lipase 14 units/L (13-60) 04/07/21 16:55 Short CBC 04/07/21 Range/Units 16:23 WBC 6.4 (4.5-11.0) K/mm3 Hgb 11.5 (10.1-14.3) gm/dl Hct 35.6 (30.3-42.9) % Plt Count 315 (140-440) K/mm3 BMP 04/07/21 04/07/21 16:23 16:23 Sodium 138 Potassium 4.0 Chloride 100.3 Carbon Dioxide 27 BUN 8 Creatinine 0.9 Glucose 114 H 115 H Calcium 9.0 Cardiac Enzymes 04/07/21 04/08/21 Range/Units 16:23 00:04 Troponin T < 0.010 < 0.010 (0.00-0.029) ng/mL Liver Function 04/07/21 Range/Units 16:23 Total Bilirubin 0.50 (0.1-1.2) mg/dL AST 35 (5-40) units/L ALT 25 (7-56) units/L Alkaline Phosphatase 67 (35-129) units/L Albumin 3.7 L (3.9-5) g/dL Microbiology: Microbiology 04/07/21 16:23 Peripheral/Venous Blood Culture - Preliminary Culture in Progress 04/07/21 16:23 Peripheral/Venous Blood Culture - Preliminary Culture in Progress - Imaging and Cardiology EKG: report reviewed ([place] problem no acute ST-T wave changes) Chest x-ray: report reviewed Imaging and Cardiology: Chest x-ray Limited study due to underpenetration. There is mild interstitial lung disease and small effusions which could be seen in the setting of lower airway disease or pulmonary edema. Assessment and Plan Advance Directives: Yes (Full code) VTE prophylaxis?: Chemical Plan of care discussed with patient/family: Yes - Patient Problems (1) Acute respiratory failure with hypoxia Current Visit: Yes Status: Acute Plan to address problem: Possibly a combination of hypoventilation and Covid 19 infection Oxygen supplementation as necessary (2) SIRS (systemic inflammatory response syndrome) Current Visit: Yes Status: Acute Plan to address problem: Patient is elevated inflammatory markers in the form of CRP ferritin and D-dimer (3) Pneumonia due to COVID-19 virus Current Visit: Yes Status: Acute Plan to address problem: Chest x-ray is equivocal We will treat as community-acquired pneumonia and Covid Covid PCR requested (4) T2DM (type 2 diabetes mellitus) Current Visit: Yes Status: Chronic Qualifiers: Diabetes mellitus fci insulin use: unspecified intermediate teacher insulin use status Plan to address problem: By history A1c is normal Coverage as necessary (5) Hypertension Current Visit: Yes Status: Chronic Qualifiers: Hypertension type: primary hypertension Qualified Code(s): I10 - Essential (primary) hypertension Plan to address problem: Continue antihypertensives (6) Morbid obesity with BMI of 50.0-59.9, adult Current Visit: Yes Status: Chronic Plan to address problem: Patient to follow-up with bariatric surgery after discharge Referral to Dr. Whitley to be given (7) DVT prophylaxis Current Visit: Yes Status: Acute Plan to address problem: On Lovenox and GI prophylaxis
[2021-04-08] MEDS ORDERED: NON-FORMULARY EACH (Cyclobenzaprine Hcl [Flexeril 5 Mg Tab] 5 MG Tablet) PO SCH (08:00)
[2021-04-08] MEDS: CYCLOBENZAPRINE 10 MG TAB PO SCH ×2 (09:16→13:30)
[2021-04-08] MEDS ORDERED: cefTRIAXone/NS 2 GM/100 ML 2 GM/100 ML BAG IV SCH (10:00)
[2021-04-08] MEDS ORDERED: AZITHROMYCIN/NS 500 MG/250 ML 500 MG/250 ML BAG IV SCH (10:00)
[2021-04-08] MEDS ORDERED: FAMOTIDINE 20 MG TAB PO SCH (10:00)
--- NOTE | 2021-04-08 12:22 | Progress Note ---
Hospitalist Physical - Constitutional Vitals: Temp Pulse Resp BP Pulse Ox 98.6 F 84 20 116/69 97 04/08/21 11:10 04/08/21 11:11 04/08/21 11:10 04/08/21 11:10 04/08/21 11:11 General appearance: Present: mild distress, well-nourished HEART Score - HEART Score Troponin: Troponin T < 0.010 ng/mL (0.00-0.029) 04/08/21 00:04 Results - Labs CBC & Chem 7: 04/07/21 16:23 04/07/21 16:23 Labs: Laboratory Last Values WBC 6.4 K/mm3 (4.5-11.0) 04/07/21 16:23 RBC 4.43 M/mm3 (3.65-5.03) 04/07/21 16:23 Hgb 11.5 gm/dl (10.1-14.3) 04/07/21 16:23 Hct 35.6 % (30.3-42.9) 04/07/21 16:23 MCV 80 fl (79-97) 04/07/21 16:23 MCH 26 pg (28-32) L 04/07/21 16:23 MCHC 32 % (30-34) 04/07/21 16:23 RDW 16.4 % (13.2-15.2) H 04/07/21 16:23 Plt Count 315 K/mm3 (140-440) 04/07/21 16:23 Lymph % (Auto) 19.7 % (13.4-35.0) 04/07/21 16:23 [place] % (Auto) 6.8 % (0.0-7.3) 04/07/21 16:23 Eos % (Auto) 0.6 % (0.0-4.3) 04/07/21 16:23 Baso % (Auto) 1.3 % (0.0-1.8) 04/07/21 16:23 Lymph # (Auto) 1.3 K/mm3 (1.2-5.4) 04/07/21 16:23 [place] # (Auto) 0.4 K/mm3 (0.0-0.8) 04/07/21 16:23 Eos # (Auto) 0.0 K/mm3 (0.0-0.4) 04/07/21 16:23 Baso # (Auto) 0.1 K/mm3 (0.0-0.1) 04/07/21 16:23 Seg Neutrophils % 71.6 % (40.0-70.0) H 04/07/21 16:23 Seg Neutrophils # 4.6 K/mm3 (1.8-7.7) 04/07/21 16:23 PT 13.6 Sec. (12.2-14.9) 04/07/21 16:23 INR 0.99 (0.87-1.13) 04/07/21 16:23 APTT 25.3 Sec. (24.2-36.6) 04/07/21 16:23 D-Dimer 734.18 ng/mlDDU (0-234) H 04/07/21 16:23 Sodium 138 mmol/L (137-145) 04/07/21 16:23 Potassium 4.0 mmol/L (3.6-5.0) 04/07/21 16:23 Chloride 100.3 mmol/L (98-107) 04/07/21 16:23 Carbon Dioxide 27 mmol/L (22-30) 04/07/21 16:23 Anion Gap 15 mmol/L 04/07/21 16:23 BUN 8 mg/dL (7-17) 04/07/21 16:23 Creatinine 0.9 mg/dL (0.6-1.2) 04/07/21 16:23 Estimated GFR > 60 ml/min 04/07/21 16:23 BUN/Creatinine Ratio 9 % 04/07/21 16:23 Glucose 114 mg/dL (65-100) H 04/07/21 16:23 Glucose 115 mg/dL (65-100) H 04/07/21 16:23 POC Glucose 125 mg/dL (70-105) H 04/08/21 11:08 Hemoglobin A1c 5.5 % (4-6) 04/08/21 05:04 Lactic Acid 0.60 mmol/L (0.7-2.0) L 04/08/21 00:04 Calcium 9.0 mg/dL (8.4-10.2) 04/07/21 16:23 Magnesium 2.20 mg/dL (1.7-2.3) 04/07/21 16:23 Ferritin 386.8 ng/mL (10.0-200.0) H 04/07/21 16:23 Total Bilirubin 0.50 mg/dL (0.1-1.2) 04/07/21 16:23 AST 35 units/L (5-40) 04/07/21 16:23 ALT 25 units/L (7-56) 04/07/21 16:23 Alkaline Phosphatase 67 units/L (35-129) 04/07/21 16:23 Lactate Dehydrogenase 308 units/L (91-180) H 04/07/21 16:23 Troponin T < 0.010 ng/mL (0.00-0.029) 04/08/21 00:04 C-Reactive Protein 7.00 mg/dL (0.00-1.30) H 04/07/21 16:23 NT-Pro-B Natriuret Pep 5.50 pg/mL (0-900) 04/07/21 16:55 Total Protein 7.1 g/dL (6.3-8.2) 04/07/21 16:23 Albumin 3.7 g/dL (3.9-5) L 04/07/21 16:23 Albumin/Globulin Ratio 1.1 % 04/07/21 16:23 Lipase 14 units/L (13-60) 04/07/21 16:55 Microbiology: Microbiology 04/07/21 16:23 Peripheral/Venous Blood Culture - Preliminary Culture in Progress 04/07/21 16:23 Peripheral/Venous Blood Culture - Preliminary Culture in Progress Active Medications - Current Medications Current Medications: Generic Name Dose Route Start Last Admin Trade Name [place] PRN Reason Stop Dose Admin Acetaminophen 650 mg 04/07/21 23:46 Acetaminophen 325 Mg Tab PO Q4H PRN Pain MILD(1-3)/Fever >100.5/[place] Hydrocodone Bitart/Acetaminophen 1 each 04/07/21 23:44 Hydrocodone/Acetaminophen 10-325mg Tab PO Q6HR PRN Pain, Moderate (4-6) Albuterol 2.5 mg 04/07/21 23:50 Albuterol 2.5 Mg/3 Ml Nebu IH Q4HRT PRN Wheezing Cyclobenzaprine HCl 5 mg 04/08/21 08:00 04/08/21 09:16 Cyclobenzaprine 10 Mg Tab PO 5 mg TID JESSE Administration Dexamethasone 8 mg 04/07/21 23:45 Dexamethasone 4 Mg/Ml Vial IV Q24HR@2200 [facility] Enoxaparin Sodium 150 mg 04/08/21 22:00 Enoxaparin 150 Mg/1 Ml Inj SUB-Q Q12HR [facility] Famotidine 20 mg 04/08/21 10:00 04/08/21 09:17 Famotidine 20 Mg Tab PO 20 mg BID [facility] Administration Hydromorphone HCl 0.5 mg 04/07/21 23:46 Hydromorphone 1 Mg/1 Ml Inj IV Q3H PRN Pain , Severe (7-10) Azithromycin 500 mg in 250 mls @ 250 mls/hr 04/08/21 10:00 04/08/21 09:50 Zithromax/Ns IV 250 mls/hr Q24H [facility] Administration Ceftriaxone Sodium 2 gm in 100 mls @ 200 mls/hr 04/08/21 10:00 04/08/21 09:13 Rocephin/Ns 2 Gm/100 Ml IV 200 mls/hr Q24HR [facility] Administration Protocol Metoclopramide HCl 10 mg 04/07/21 23:46 Metoclopramide 10 Mg/2 Ml Inj IV Q6H PRN Nausea And Vomiting Ondansetron HCl 4 mg 04/07/21 23:46 Ondansetron 4 Mg/2 Ml Inj IV Q8H PRN Nausea And Vomiting Oxycodone/Acetaminophen 1 tab 04/07/21 23:46 Oxycodone /Acetaminophen 5-325mg Tab PO Q6H PRN Pain, Moderate (4-6) Sodium Chloride 10 ml 04/07/21 23:45 04/08/21 09:15 Sodium Chloride 0.9% 10 Ml Flush Syringe IV 10 ml BID JESSE Administration Sodium Chloride 10 ml 04/07/21 23:46 Sodium Chloride 0.9% 10 Ml Flush Syringe IV PRN PRN LINE FLUSH
--- NOTE | 2021-04-08 14:20 | Consultation ---
History of Present Illness - Reason for Consult Consult date: 04/08/21 COVID-19, hypoxia Requesting physician: BEENA GREEN - History of Present Illness The patient is a 56-year-old female with diabetes, hypertension, morbid obesity was diagnosed with COVID-19 last Friday, came into the hospital with worsening shortness of breath for the last 2 weeks. She was noted to be hypoxic with oxygen saturation in the high 80s, hence admitted to the hospital. Infectious diseases was consulted for additional evaluation. She is currently afebrile. She was started on empiric antibiotics as well as steroids. Labs reviewed, WBC 6.4, D-dimer 734, ferritin 386, CRP 7.0, procalcitonin 0.05. Today, weaned to room air. Review of Systems: reviewed in the chart, unable to obtain, minimize risk of transmission Medications and Allergies Allergies Allergy/AdvReac Type Severity Reaction Status Date / Time No Known Allergies Allergy Verified 04/07/21 15:26 Home Medications Medication Instructions Recorded Confirmed Last Taken Type HYDROcodone/APAP 10-325 [[place] 1 each PO Q6HR PRN #20 tablet 06/17/15 04/08/21 04/06/21 Rx 10/325] Albuterol Sulfate [Ventolin HFA] 2 puff IH Q4H PRN #1 hfa.aer.ad 10/16/15 04/08/21 04/06/21 Rx Cyclobenzaprine HCl [Flexeril 5 MG 5 mg PO TID #15 tab 06/24/16 04/08/21 04/07/21 Rx TAB] Naproxen 500 mg PO BID PRN #20 tablet 03/16/21 04/08/21 04/06/21 Rx ALPRAZolam [Xanax TAB] 2 mg PO TID 04/08/21 04/08/21 04/06/21 History Benzonatate [Tessalon Perles] 100 mg PO Q8HR 04/08/21 04/08/21 04/06/21 History Ciprofloxacin [Ciprofloxacin ORAL 500 mg PO Q12H 04/08/21 04/08/21 04/06/21 History LIQ] Ipratropium/Albuterol Sulfate 2 inh PO TID PRN 04/08/21 04/08/21 04/06/21 History Losartan [Cozaar] 50 mg PO QDAY 04/08/21 04/08/21 04/06/21 History Oxybutynin [Ditropan] 15 mg PO DAILY 04/08/21 04/08/21 04/06/21 History Torsemide [Demadex] 10 mg PO QDAY 04/08/21 04/08/21 04/06/21 History Triamcinolone 0.5% [Kenalog 0.5% 1 each TRANSDERMA TID 04/08/21 04/08/21 04/06/21 History CREAM] Active Meds: Active Medications Acetaminophen (Acetaminophen 325 Mg Tab) 650 mg PO Q4H PRN PRN Reason: Pain MILD(1-3)/Fever >100.5/[place] Hydrocodone Bitart/Acetaminophen (Hydrocodone/Acetaminophen 10-325mg Tab) 1 each PO Q6HR PRN PRN Reason: Pain, Moderate (4-6) Albuterol (Albuterol 2.5 Mg/3 Ml Nebu) 2.5 mg IH Q4HRT PRN PRN Reason: Wheezing Cyclobenzaprine HCl (Cyclobenzaprine 10 Mg Tab) 5 mg PO TID [facility] Last Admin: 04/08/21 13:30 Dose: 5 mg Documented by: Dexamethasone (Dexamethasone 4 Mg/Ml Vial) 8 mg IV Q24HR@2200 [facility] Enoxaparin Sodium (Enoxaparin 150 Mg/1 Ml Inj) 150 mg SUB-Q Q12HR [facility] Famotidine (Famotidine 20 Mg Tab) 20 mg PO BID [facility] Last Admin: 04/08/21 09:17 Dose: 20 mg Documented by: Hydromorphone HCl (Hydromorphone 1 Mg/1 Ml Inj) 0.5 mg IV Q3H PRN PRN Reason: Pain , Severe (7-10) Metoclopramide HCl (Metoclopramide 10 Mg/2 Ml Inj) 10 mg IV Q6H PRN PRN Reason: Nausea And Vomiting Ondansetron HCl (Ondansetron 4 Mg/2 Ml Inj) 4 mg IV Q8H PRN PRN Reason: Nausea And Vomiting Oxycodone/Acetaminophen (Oxycodone /Acetaminophen 5-325mg Tab) 1 tab PO Q6H PRN PRN Reason: Pain, Moderate (4-6) Sodium Chloride (Sodium Chloride 0.9% 10 Ml Flush Syringe) 10 ml IV BID [facility] Last Admin: 04/08/21 09:15 Dose: 10 ml Documented by: Sodium Chloride (Sodium Chloride 0.9% 10 Ml Flush Syringe) 10 ml IV PRN PRN PRN Reason: LINE FLUSH Physical Examination - Physical Exam Narrative exam: Physical Exam (reviewed in chart to minimize risk of transmission) Constitutional: deferred Head, Ears, Nose: deferred Eyes: deferred Neck: deferred Oral: deferred Cardiovascular: deferred Respiratory: deferred GI: deferred Musculoskeletal: deferred Skin: deferred Hem/Lymphatic: deferred Psych: deferred Neurological: deferred - Constitutional Vitals: Vital Signs Temp Pulse Resp BP Pulse Ox 98.6 F 84 20 116/69 97 04/08/21 11:10 04/08/21 11:11 04/08/21 11:10 04/08/21 11:10 04/08/21 11:11 Temperature -Last 24 Hours Temperature 98.6 F Temperature 97.9 F Temperature 97.9 F Temperature 98 F Results - Labs CBC & Chem 7: 04/07/21 16:23 04/07/21 16:23 Labs: Abnormal lab results 04/07/21 04/07/21 04/07/21 Range/Units 16:23 16:23 16:23 MCH 26 L (28-32) pg RDW 16.4 H (13.2-15.2) % Seg Neutrophils % 71.6 H (40.0-70.0) % D-Dimer (0-234) ng/mlDDU Glucose 114 H 115 H (65-100) mg/dL POC Glucose (70-105) mg/dL Lactic Acid (0.7-2.0) mmol/L Ferritin (10.0-200.0) ng/mL Lactate Dehydrogenase 308 H (91-180) units/L C-Reactive Protein 7.00 H (0.00-1.30) mg/dL Albumin 3.7 L (3.9-5) g/dL 04/07/21 04/07/21 04/08/21 Range/Units 16:23 16:23 00:04 MCH (28-32) pg RDW (13.2-15.2) % Seg Neutrophils % (40.0-70.0) % D-Dimer 734.18 H (0-234) ng/mlDDU Glucose (65-100) mg/dL POC Glucose (70-105) mg/dL Lactic Acid 0.60 L (0.7-2.0) mmol/L Ferritin 386.8 H (10.0-200.0) ng/mL Lactate Dehydrogenase (91-180) units/L C-Reactive Protein (0.00-1.30) mg/dL Albumin (3.9-5) g/dL 04/08/21 Range/Units 11:08 MCH (28-32) pg RDW (13.2-15.2) % Seg Neutrophils % (40.0-70.0) % D-Dimer (0-234) ng/mlDDU Glucose (65-100) mg/dL POC Glucose 125 H (70-105) mg/dL Lactic Acid (0.7-2.0) mmol/L Ferritin (10.0-200.0) ng/mL Lactate Dehydrogenase (91-180) units/L C-Reactive Protein (0.00-1.30) mg/dL Albumin (3.9-5) g/dL - Imaging and Cardiology Chest x-ray: report reviewed, image reviewed (limited study due to under penetration) Assessment and Plan Cultures: SARS CoV2 PCR: Positive as outpatient 04/07/2021 blood culture: In process A/P: 56-year-old female with diabetes, hypertension, morbid obesity admitted with shortness of breath, COVID-19: #Bilateral pneumonia: Secondary to COVID-19. WBC 6.4, D-dimer 734, ferritin 386, CRP 7.0, procalcitonin 0.05 #Acute hypoxic respiratory failure: Hypoxia resolved with steroids. #Morbid obesity #Diabetes mellitus type 2 Recs: -Hypoxia has improved, hence hold off on remdesivir -Continue with steroids: IV/PO Dexamethasone 8 mg daily x 10 days, higher dose due to morbid obesity -Procalcitonin is low, antibiotics discontinued -prophylactic anticoagulation based on d-dimer per hospital protocol -trend ferritin, LDH, d-dimer, CRP every 2-3 days for risk stratification and to assess disease progression Abe Judd MD, FACP [facility] O: [phone] F: [phone]
[2021-04-08 14:46] LABS: Bilirubin,Urine NEG (Negative); Blood,Urine NEG (Negative); Color,Urine Yellow (Yellow); Mucus,Urine FEW /HPF; Protein,Urine <15 mg/dL mg/dL (Negative); Urobilinogen,Urine < 2.0 mg/dL (<2.0); WBC,Urine < 1.0 /HPF (0.0-6.0)
--- NOTE | 2021-04-08 15:44 | Discharge Summary ---
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 Patient has been short of breath for the past 2 weeks and experiencing abdominal pain and occasional nausea and vomiting and dry cough. Patient was seen at [facility] on Friday and tested positive for Covid. Patient was discharged from the emergency room. Today patient was noted to be hypoxic with oxygen saturation in the high 80s. She was placed on oxygen and brought to the emergency room. Patient is short of breath in the emergency room intermittently. At times patient is asymptomatic. No chest pain. No fever. No muscle aches. No exposure to coronavirus. Patient is unvaccinated. Patient was seen by ID and recommedation as noted below 56-year-old female with diabetes, hypertension, morbid obesity admitted with shortness of breath, COVID-19: #Bilateral pneumonia: Secondary to COVID-19. WBC 6.4, D-dimer 734, ferritin 386, CRP 7.0, procalcitonin 0.05 #Acute hypoxic respiratory failure: Hypoxia resolved with steroids. #Morbid obesity #Diabetes mellitus type 2 Recs: -Hypoxia has improved, hence hold off on remdesivir -Continue with steroids: IV/PO Dexamethasone 8 mg daily x 10 days, higher dose due to morbid obesity -Procalcitonin is low, antibiotics discontinued -prophylactic anticoagulation based on d-dimer per hospital protocol -trend ferritin, LDH, d-dimer, CRP every 2-3 days for risk stratification and to assess disease progression On discharge patient was put on Eliquis 2.5 mg twice daily due to transient hypoxia inability to get a scan to rule out pulmonary embolism she is clinically stable at this time resting comfortably ambulated with a sat of 97% mild shortness of breath after about 7minutes but no hypoxia. Patient was also advised to lose weight consider morbid obesity - Patient Problems (1) Acute respiratory failure with hypoxia Current Visit: Yes Status: Acute Plan to address problem: Possibly a combination of hypoventilation and Covid 19 infection Oxygen supplementation as necessary (2) SIRS (systemic inflammatory response syndrome) Current Visit: Yes Status: Acute Plan to address problem: Patient is elevated inflammatory markers in the form of CRP ferritin and D-dimer (3) Pneumonia due to COVID-19 virus Current Visit: Yes Status: Acute Plan to address problem: Chest x-ray is equivocal We will treat as community-acquired pneumonia and Covid Covid PCR requested (4) T2DM (type 2 diabetes mellitus) Current Visit: Yes Status: Chronic Qualifiers: 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 Whitley to be given (7) DVT prophylaxis Current Visit: Yes Status: Acute Plan to address problem: On Lovenox and GI prophylaxis Disposition: 01 HOME / SELF CARE / HOMELESS Final Discharge Diagnosis (Prints w/discharge instructions): Acute hypoxic respiratory failure secondary to COVID-19 Time spent for discharge: 35 MINS Core Measure Documentation - Palliative Care Palliative Care/ Comfort Measures: Not Applicable - Core Measures Any of the following diagnoses?: none Exam - Physical Exam Narrative exam: General appearance: Present: mild distress, well-nourished - EENT Eyes: Present: PERRL ENT: hearing intact, clear oral mucosa - Neck Neck: Present: supple, normal ROM - Respiratory Respiratory effort: normal Respiratory: bilateral: CTA - Cardiovascular Heart rate: 78 Rhythm: regular Heart Sounds: Present: S1 & S2. Absent: rub, click - Extremities Extremities: no ischemia, pulses symmetrical, No edema Peripheral Pulses: within normal limits - Abdominal General gastrointestinal: Present: soft, non-tender, non-distended, normal bowel sounds Female genitourinary: Present: normal - Integumentary Integumentary: Present: clear, warm, dry - Musculoskeletal Musculoskeletal: gait normal, strength equal bilaterally - Psychiatric Psychiatric: appropriate mood/affect, intact judgment & insight - Neurologic Neurologic: CNII-XII intact, moves all extremities - Allied Health Allied health notes reviewed: nursing, case management - Constitutional Vitals: Temp Pulse Resp BP Pulse Ox 98.6 F 84 20 116/69 97 04/08/21 11:10 04/08/21 11:11 04/08/21 11:10 04/08/21 11:10 04/08/21 11:11 Plan Activity: advance as tolerated, fall precautions Diet: low fat, diabetic Special Instructions: record daily weights, record daily BP diary, record blood sugar diary Plan of Treatment: With primary care doctor in 2 to 3 days to get a repeat D-dimer level. Use Eliquis for only 10 days. STOP IF ANY BLEEDING and see your doctor or come to the ER must continue SOCIAL DISTANCING AND MASK TO PROTECT FAMILY. Follow up with: PRIMARY CAREMD [Primary Care Provider] - 3-5 Days MAYRA SUTHERLAND MD [Staff Physician] - 7 Days Prescriptions: dexAMETHasone [Dexamethasone] 8 mg PO DAILY #8 tablet Apixaban [Eliquis] 2.5 mg PO BID #20 tablet Ascorbic Acid [Vitamin C] 1,000 mg PO BID #60 tablet Cholecalciferol (Vitamin D3) [Vitamin D3] 5,000 unit PO DAILY #30 tablet Zinc Sulfate 220 mg PO DAILY #30 capsule
[2021-04-08 17:50] VITALS: BP 115/75
[2021-04-08] MEDS ORDERED: ENOXAPARIN 100 MG/1 ML INJ SUB-Q SCH (22:00)
[2021-04-08] MEDS ORDERED: ENOXAPARIN 40 MG/0.4 ML INJ SUB-Q SCH (22:00)
[2021-04-08] MEDS ORDERED: ENOXAPARIN 150 MG/1 ML INJ SUB-Q SCH (22:00)
--- NOTE | 2021-04-09 21:02 | Electrocardiograph Report ---
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
== END 2021-04-08 17:15 | disposition home or self-care (01) ==
LOC: ED 13:38 → 3A 22:05 → INTOOBSV 22:05 → 3A 04-08 06:51
PROVIDERS: ADMIT Internal Medicine; ATTEND Internal Medicine
DX: U07.1 COVID-19 (principal); J12.82 Pneumonia due to coronavirus disease 2019; J96.01 Acute respiratory failure with hypoxia; R65.10 Systemic inflammatory response syndrome (SIRS) of non-infectious origin without acute organ dysfunction; I25.10 Atherosclerotic heart disease of native coronary artery without angina pectoris; E11.9 Type 2 diabetes mellitus without complications; I10 Essential (primary) hypertension; E66.01 Morbid (severe) obesity due to excess calories; M19.90 Unspecified osteoarthritis, unspecified site; R77.8 Other specified abnormalities of plasma proteins; Z68.43 Body mass index [BMI] 50.0-59.9, adult; Z79.899 Other long term (current) drug therapy; Z98.891 History of uterine scar from previous surgery; Z90.710 Acquired absence of both cervix and uterus
CPT/HCPCS: 36415; 71045; 80053; 81001; 82140; 82728; 82947; 82962; 83036; 83615; 83690; 83735; 83880; 84145; 84484; 85025; 85379; 85610; 85730; 86140; 87040; 87086; 93005; 96365; 96366; 96367; 99291; G0378; J0456; J0692; J0696; U0003